=== PATIENT | female | born 1990 | race Caucasian/White ===

== ENCOUNTER 2019-11-28 11:45 | Inpatient (IN) ==
[2019-11-28] MEDS ORDERED: LACTATED RINGERS 250 ML IV ONE (12:09)
[2019-11-28] MEDS ORDERED: ONDANSETRON 4 MG/2 ML VIAL IV PRN ×2 (12:09→19:38)
[2019-11-28] MEDS ORDERED: LACTATED RINGERS 500 ML IV PRN (12:09)
[2019-11-28] MEDS ORDERED: ceFAZolin 2,000 MG in PREMIX 1 EACH IV ONE (12:21)
[2019-11-28] MEDS ORDERED: FAMOTIDINE 20 MG/2 ML VIAL IV ONE (12:21)
[2019-11-28] MEDS ORDERED: CITRIC ACID/SODIUM CITRATE 30 ML UDCUP PO ONE (12:21)
[2019-11-28] MEDS ORDERED: LACTATED RINGERS 1,000 ML IV SCH ×2 (12:30→20:00)
[2019-11-28 13:27] LABS: Basophils % 0.5 % (0.0-0.8); Eosinophils # 0.1 10*3/uL (0.0-0.87); Eosinophils % 1.7 % (0.00-10.9); Hematocrit 32.2 VOL% (35.7-47.0); Hemoglobin 10.6 GM/DL (12.0-16.0); Immature Granulocytes % 0.4 %; Immature Granulocytes Absolute 0.03 #; Lymphocytes # 1.6 10*3/uL (1.4-4.0); Lymphocytes % 19.5 % (21.3-54.2); Mean Corpuscular HGB Conc 32.9 GM/DL (32-36); Mean Corpuscular Volume 87.7 FL (87-102); Mean Platelet Volume 11.6 FL (9.6-12.0); Monocytes % 5.2 % (1.7-12.7); Neutrophils % 72.7 % (38.7-73.9); Platelet Count 147 T/CUMM (130-400); Red Blood Count 3.67 MC/CUMM (3.8-5.5); Red Cell Distribution Width 13.7 % (9.3-17.3); White Blood Count 8.1 T/CUMM (4-12)
[2019-11-28 13:34] LABS: Alanine Aminotransferase 16 U/L (13-56); Albumin 2.4 G/DL (3.4-5.0); Alkaline Phosphatase 198 U/L (45-117); Aspartate Amino Transferase 15 U/L (0-37); Bilirubin,Total < 0.39 MG/DL (0.2-1.0); Blood Urea Nitrogen 3 MG/DL (7-18); Calcium 8.1 MG/DL (8.5-10.1); Estimated Glom Filtration Rate 130 ML/MIN; Glucose 73 MG/DL (74-106); Osmolality,Calculated 278.1 MOS/KG (273-304); PT Patient Result 10.3 SECS (9.8-11.9); Partial Thromboplastin Time 27.2 SECS (23.9-33.8); Total Protein 5.9 G/DL (6.4-8.3); Uric Acid 4.1 MG/DL (2.6-6.0)
[2019-11-28] MEDS ORDERED: TRANEXAMIC ACID 1,000 MG/10 ML VIAL ONE (17:42)
[2019-11-28] MEDS ORDERED: OXYTOCIN/LR 20 UNIT/1,000 ML BAG IV ONE ×3 (17:42→19:38)
[2019-11-28] MEDS ORDERED: miSOPROStoL 200 MCG TABLET ONE (17:42)
[2019-11-28] MEDS ORDERED: METHYLERGONOVINE 0.2 MG/1 ML AMP ONE (17:43)
[2019-11-28] MEDS ORDERED: CARBOPROST TROMETHAMINE 250 MCG/ML AMP IM ONE (17:43)
[2019-11-28] MEDS ORDERED: POTASSIUM CHLORIDE RIDER 10 MEQ in PREMIX 1 EACH IV PRN (18:13)
[2019-11-28] MEDS ORDERED: ROPIVACAINE 0.5% 30 ML VIAL ONE (18:24)
[2019-11-28] MEDS ORDERED: PHENYLEPHRINE 1 MG/10 ML SYRINGE IV ONE (18:24)
[2019-11-28] MEDS ORDERED: BUPIVACAINE SPINAL 0.75% 2 ML AMP SPINAL ONE (18:25)
[2019-11-28] MEDS ORDERED: DEXAMETHASONE 4 MG/1 ML VIAL ONE (18:25)
[2019-11-28] MEDS ORDERED: MORPHINE 10 MG/10 ML VIAL ONE (18:25)
[2019-11-28] MEDS ORDERED: SODIUM CHLOR 0.9% KCL 20 MEQ 20 MEQ/1,000 ML BAG IV SCH (18:30)
[2019-11-28 19:37] LABS: Cord Arterial Blood HCO3 22.4 MMOL/L
[2019-11-28] MEDS ORDERED: ACETAMINOPHEN 325 MG TABLET PO PRN (19:38)
[2019-11-28] MEDS ORDERED: SIMETHICONE CHEW 80 MG TABLET PO PRN (19:38)
[2019-11-28] MEDS ORDERED: RHO(D) IMMUNE GLOBULIN 300 MCG SYRINGE IM ONE (19:38)
[2019-11-28 19:40] LABS: Cord Venous Blood HCO3 23.1 MMOL/L; Cord Venous Blood PCO2 42.7 MMHG; Cord Venous Blood PO2 24.4
[2019-11-28 19:45] LABS: Bilirubin,Urine Negative (Negative); Blood, Urine Negative (Negative); Glucose,Urine (UA) Negative (Negative); Ketones,Urine 80 mg/dL (Negative); Mucus,Urine Occasional /LPF (Occasional); Nitrite,Urine Negative (Negative); Protein,Urine Negative; RBC,Urine 1 /HPF (0-4); Squamous Epithelial Cell,Urine Occasional /HPF (0-10); Urine Appearance CLEAR (Clear); Urine Color Yellow (Yellow); Urine Specific Gravity 1.013 (1.001-1.035); Urine Urobilinogen < 2.0 EU/DL (0.2-1.0); WBC,Urine 1 /HPF (0-6)
[2019-11-28] MEDS ORDERED: MIDAZOLAM 2 MG/2 ML VIAL ONE (19:55)
[2019-11-28] MEDS: KETOROLAC 30 MG/1 ML VIAL IV PRN (23:51)
[2019-11-29] MEDS: ceFAZolin 1,000 MG in SYRINGE 1 EACH IV SCH ×2 (02:24→10:50)
[2019-11-29 06:06] LABS: Basophils % 0.3 % (0.0-0.8); Hemoglobin 9.4 GM/DL (12.0-16.0); Immature Granulocytes % 0.8 %; Immature Granulocytes Absolute 0.08 #; Lymphocytes # 1.2 10*3/uL (1.4-4.0); Lymphocytes % 11.7 % (21.3-54.2); Mean Corpuscular HGB Conc 33.6 GM/DL (32-36); Mean Corpuscular Volume 87.2 FL (87-102); Mean Platelet Volume 11.5 FL (9.6-12.0); Monocytes % 4.4 % (1.7-12.7); Neutrophils % 82.8 % (38.7-73.9); Platelet Count 158 T/CUMM (130-400); Red Blood Count 3.21 MC/CUMM (3.8-5.5); Red Cell Distribution Width 13.2 % (9.3-17.3); White Blood Count 10.3 T/CUMM (4-12)
[2019-11-29 06:26] LABS: Bilirubin,Total 0.5 MG/DL (0.2-1.0); Osmolality,Calculated 272.5 MOS/KG (273-304); Total Protein 5.2 G/DL (6.4-8.3)
[2019-11-29] MEDS ORDERED: POTASSIUM CHLORIDE 20 MEQ TABLET PO PRN (06:29)
[2019-11-29] MEDS: KETOROLAC 30 MG/1 ML VIAL IV PRN (08:46)
[2019-11-29] MEDS: LABETALOL 200 MG TABLET PO SCH ×2 (08:47→20:35)
[2019-11-29] MEDS: DOCUSATE SODIUM 100 MG CAPSULE PO SCH ×2 (08:47→20:35)
[2019-11-29] MEDS: MULTIVITAMIN (PRENATAL) TABLET PO SCH (08:48)
[2019-11-29] MEDS: MAGNESIUM HYDROXIDE SUSP 30 ML UDCUP PO PRN ×2 (08:48→20:36)
[2019-11-29] MEDS: POTASSIUM CHLORIDE 20 MEQ/15 ML UDCUP PO PRN ×4 (10:49→19:01)
[2019-11-29] MEDS: IBUPROFEN 800 MG TABLET PO PRN (17:04)
[2019-11-29] MEDS: oxyCODONE/ACETAMINOPHEN 5-325 MG TABLET PO PRN ×2 (17:07→20:37)
[2019-11-30] MEDS: IBUPROFEN 800 MG TABLET PO PRN (01:58)
[2019-11-30] MEDS: oxyCODONE/ACETAMINOPHEN 5-325 MG TABLET PO PRN ×2 (01:59→07:08)
[2019-11-30] MEDS: MULTIVITAMIN (PRENATAL) TABLET PO SCH (07:08)
[2019-11-30] MEDS: DOCUSATE SODIUM 100 MG CAPSULE PO SCH (07:08)
[2019-11-30 08:58] VITALS: BP 139/80
[2019-11-30] MEDS: POTASSIUM CHLORIDE 20 MEQ/15 ML UDCUP PO PRN (10:05)
== END 2019-11-30 12:45 | disposition home or self-care (01) | DRG 788 ==
LOC: N.LD 11:45 → N.OB 23:20
PROVIDERS: ADMIT Obstetrics & Gynecology; ATTEND Obstetrics & Gynecology
PROC: LDCSECT (ICD-10-PCS; 2019-11-28 14:15)